=== PATIENT | male | born 1950 | race Caucasian/White ===

== ENCOUNTER 2023-04-09 11:52 | Outpatient (RCR) | payer MEDICARE, OTHER, SELFPAY | END 2023-04-09 23:59 | disposition home or self-care (01) | LOC: ROT 11:52 | PROVIDERS: ATTENDING PHYSICIAN Family Medicine | DX: I69.310 Attention and concentration deficit following cerebral infarction (principal); I63.9 Cerebral infarction, unspecified (principal); Z73.6 Limitation of activities due to disability; I69.318 Other symptoms and signs involving cognitive functions following cerebral infarction; I69.398 Other sequelae of cerebral infarction; R26.89 Other abnormalities of gait and mobility | CPT/HCPCS: 97014; 97110; 97112; 97116; 97129; 97130; 97530; 97535 ==

== ENCOUNTER 2023-05-10 11:40 | Outpatient (RCR) | payer MEDICARE, OTHER, SELFPAY | END 2023-05-10 23:59 | disposition home or self-care (01) | LOC: ROT 11:40 | PROVIDERS: ATTENDING PHYSICIAN Family Medicine | DX: I63.9 Cerebral infarction, unspecified (principal); Z73.6 Limitation of activities due to disability | CPT/HCPCS: 97010; 97110; 97112; 97116; 97129; 97130; 97530; 97535; 97760 ==

== ENCOUNTER 2023-05-17 11:43 | Outpatient (RCR) | payer MEDICARE, OTHER, SELFPAY | END 2023-05-17 23:59 | disposition home or self-care (01) | LOC: ROT 11:43 | PROVIDERS: ATTENDING PHYSICIAN Family Medicine | DX: I63.9 Cerebral infarction, unspecified (principal); Z73.6 Limitation of activities due to disability | CPT/HCPCS: 97110; 97116; 97129; 97130; 97530; 97760 ==

== ENCOUNTER 2023-08-01 09:23 | Outpatient (RCR) | payer MEDICARE, OTHER, SELFPAY | END 2023-08-01 23:59 | disposition home or self-care (01) | LOC: ROT 09:23 | PROVIDERS: ATTENDING PHYSICIAN Family Medicine | DX: I69.318 Other symptoms and signs involving cognitive functions following cerebral infarction (principal); I69.310 Attention and concentration deficit following cerebral infarction; I50.20 Unspecified systolic (congestive) heart failure; Z73.6 Limitation of activities due to disability | CPT/HCPCS: 96125; 97010; 97110; 97116; 97129; 97130; 97140; 97163; 97167; 97530; 97535 ==

== ENCOUNTER 2023-09-04 09:26 | Outpatient (RCR) | payer MEDICARE, OTHER, SELFPAY | END 2023-09-04 23:59 | disposition home or self-care (01) | LOC: ROT 09:26 | PROVIDERS: ATTENDING PHYSICIAN Family Medicine | DX: I69.318 Other symptoms and signs involving cognitive functions following cerebral infarction (principal); I69.310 Attention and concentration deficit following cerebral infarction; Z73.6 Limitation of activities due to disability; I50.40 Unspecified combined systolic (congestive) and diastolic (congestive) heart failure | CPT/HCPCS: 97010; 97110; 97112; 97116; 97129; 97130; 97140; 97530; 97535 ==

== ENCOUNTER 2023-09-12 09:58 | Outpatient (RCR) | payer MEDICARE, OTHER, SELFPAY | END 2023-09-12 23:59 | disposition home or self-care (01) | LOC: ROT 09:58 | PROVIDERS: ATTENDING PHYSICIAN Family Medicine | DX: I69.318 Other symptoms and signs involving cognitive functions following cerebral infarction (principal); I69.310 Attention and concentration deficit following cerebral infarction; I50.20 Unspecified systolic (congestive) heart failure; Z73.6 Limitation of activities due to disability; I50.40 Unspecified combined systolic (congestive) and diastolic (congestive) heart failure | CPT/HCPCS: 97110; 97112; 97116; 97530 ==